=== PATIENT | female | born 1935 | race Caucasian/White ===

== ENCOUNTER 2020-09-15 12:11 | Inpatient (IN) | payer MEDICARE, OTHER ==
[~2020-09-15] VITALS: Ht 167.6 cm; Wt 49.9 kg
--- NOTE | 2020-09-15 12:20 | NUR ---
Patient [id number] [facility]. ASSISTED TO GROUND. HYPOTENSIVE. ox4, no sob noted, no s/o any acute distress. able to to make needs known. denies pain at this time. breathing even and unlabored. Dr Reed at bedside. will continue with plan of care
[2020-09-15] MEDS ORDERED: IV NS 0.9% 1,000 ML BAG IV ONE (12:30)
--- NOTE | 2020-09-15 12:34 | NUR ---
MOVE SHEET SUBMITTED AND CALLED FOR TELE BED.
[2020-09-15] MEDS ORDERED: MEGE40TA5 PO (12:37)
[2020-09-15] MEDS ORDERED: MAGN400O6 PO (12:37)
[2020-09-15] MEDS ORDERED: SENN-18 PO (12:37)
[2020-09-15] MEDS ORDERED: ISOS30TA86 PO (12:37)
[2020-09-15] MEDS ORDERED: VITA1CAP PO (12:37)
[2020-09-15] MEDS ORDERED: OXYB5TAB16 PO (12:37)
[2020-09-15] MEDS ORDERED: NA P133E RC (12:37)
[2020-09-15] MEDS ORDERED: ACET325T53 PO (12:37)
[2020-09-15] MEDS ORDERED: PANT40TA2 PO (12:37)
[2020-09-15] MEDS ORDERED: GABA-532 PO (12:37)
[2020-09-15] MEDS ORDERED: AMIN887L PO (12:37)
[2020-09-15] MEDS ORDERED: MULT-439 PO (12:37)
[2020-09-15] MEDS ORDERED: TRAZ-182 PO (12:37)
[2020-09-15] MEDS ORDERED: BISA10SU11 RC (12:37)
[2020-09-15] MEDS ORDERED: CHOL400T11 PO (12:37)
[2020-09-15] MEDS ORDERED: FURO-145 PO (12:37)
--- NOTE | 2020-09-15 12:45 | NUR ---
SON IS [employer] [phone]
--- NOTE | 2020-09-15 12:48 | NUR ---
blood drawn send to lab
--- NOTE | 2020-09-15 12:48 | NUR ---
blood sugar 96,
[2020-09-15 12:56] LABS: BASOPHILS % (AUTO) 0.7 % (0.0-2.0); EOSINOPHILS % (AUTO) 0.9 % (0.0-6.0); HEMATOCRIT 31 % (33-45); HEMOGLOBIN 10.2 g/dL (11.5-14.8); LYMPHOCYTES # (AUTO) 1.4 K/uL (0.8-4.8); LYMPHOCYTES % (AUTO) 27.5 % (20.0-44.0); MEAN CORPUSCULAR HGB CONC 33 g/dl (31.0-36.0); MEAN CORPUSCULAR VOLUME 90 fL (82-100); MONOCYTES # (AUTO) 0.6 K/uL (0.1-1.30); MONOCYTES % (AUTO) 12.7 % (2.0-12.0); NEUTROPHILS # (AUTO) 2.9 K/uL (1.8-8.9); NEUTROPHILS % (AUTO) 58.2 % (43.0-81.0); PLATELET COUNT (AUTO) 109 K/uL (150-450); RED BLOOD CELL COUNT(AUTO) 3.43 MIL/uL (4.0-5.2); WHITE BLOOD COUNT (AUTO) 4.9 K/uL (4.3-11.0)
--- NOTE | 2020-09-15 13:00 | NUR ---
going to tele 108.
[2020-09-15 13:15] LABS: ALANINE AMINOTRANSFERASE 10 U/L (12-78); ALBUMIN 2.9 g/dL (3.4-5.0); ALKALINE PHOSPHATASE 58 U/L (46-116); ASPARTATE AMINOTRANSFERASE 12 U/L (15-37); BILIRUBIN,DIRECT 0.2 mg/dL (0.0-0.2); BILIRUBIN,TOTAL 0.6 mg/dL (0.2-1.0); CALCIUM, SERUM 7.7 mg/dL (8.5-10.1); CARBON DIOXIDE 25 mmol/L (21-32); CHLORIDE 106 mmol/L (98-107); CREATININE 0.9 mg/dL (0.6-1.3); GLUCOSE 97 mg/dL (74-106); POTASSIUM 3.9 mmol/L (3.5-5.1); SODIUM SERUM 137 mmol/L (136-145); TOTAL PROTEIN, SERUM 5.9 g/dL (6.4-8.2); UREA NITROGEN, BLOOD 14 mg/dL (7-18)
--- NOTE | 2020-09-15 13:15 | NUR ---
patient swab for covid 19 rapid/pcr at this time
--- NOTE | 2020-09-15 14:06 | NUR ---
urine collected and send to lab
--- NOTE | 2020-09-15 14:30 | NUR ---
RN NOTE REPORT RECEIVED FROM RN SHARONDA. PATIENT APPEARS COMFORTABLE AND NOT IN ANY DISTRESS. V PACING ON TELEMETRY. PERIPHERAL LINE LEFT FOREARM. NO COMPLAINS OF PAIN. DESPERATE TO EAT. APPEARS PLEASANT AND CONVERSANT. SAFETY CHECKS IN PLACE. WILL CONTINUE TO MONITOR.
--- NOTE | 2020-09-15 14:31 | NUR ---
patient transported by [facility] from ER to [facility] room [address] report given to kimberly Thomas @ [facility]
[2020-09-15 14:50] LABS: BILIRUBIN,URINE NEGATIVE (NEGATIVE); COLOR,URINE YELLOW (YELLOW); LEUKOCYTE ESTERASE ,URINE TRACE (NEGATIVE); NITRITE, URINE NEGATIVE (NEGATIVE); PH,URINE 6.5 (5.0-8.0); PROTEIN,URINE NEGATIVE (NEGATIVE); UGLUCOSE NEGATIVE (NEGATIVE)
[2020-09-15 15:13] LABS: BACTERIA,URINE 2+ /HPF (None Seen)
[2020-09-15] MEDS ORDERED: Z GUARD REMEDY 2 OZ OINT TP PRN (15:30)
[2020-09-15] MEDS ORDERED: ONDANSETRON HCL/PF 4 MG/2 ML VIAL IVP PRN (15:30)
[2020-09-15] MEDS ORDERED: NA PHOS,M-B/NA PHOS,DI-BA 1 EA ENEMA RC PRN (15:30)
[2020-09-15] MEDS ORDERED: ACETAMINOPHEN 325 MG TABLET PO PRN (15:30)
[2020-09-15] MEDS ORDERED: IV NS 0.9% 1,000 ML IV PRN (15:30)
[2020-09-15] MEDS ORDERED: MAGNESIUM HYDROXIDE 30 ML UDC PO PRN (15:30)
[2020-09-15] MEDS ORDERED: BISACODYL SUPP (10 MG) 10 MG/SUPP.RECT SUPP.RECT RC PRN (15:30)
[2020-09-15 16:00] VITALS: BP 94/53
[2020-09-15] MEDS: SENNOSIDES 8.6 MG TABLET PO SCH (17:10)
--- NOTE | 2020-09-15 18:36 | NUR ---
RN NOTE PATIENT SHOWING EPISODES OF MILD CONFUSION AND SHORT TERM MEMORY IMPAIRMENT. NO CONCERNS RAISED. PATIENT WANTING TO GO HOME BUT RE DIRECTABLE AFTER PROPER EXPLANATION OF PLAN. SAFETY CHECKS IN PLACE. WILL ENDORSE TO NIGHT RN FOR CONTINUITY OF CARE.
--- NOTE | 2020-09-15 19:35 | NUR ---
RN OPENING NOTES PT RECEIVED IN BED. IV LINE WAS PULLED OUT. PT REFUSING TO HAVE ANOTHER IV LINE INSERTED. INSTRUCTIONAL CONSULTANT MADE WELL AWARE. WILL TRY TO INSERT LATER. PT IS A&OX4. CURRENTLY ON ROOM AIR WITH O2 SATURATION OF >98% SHOWING NO S/S OF RESPIRATORY DISTRESS/SOB. PT IS ABLE TO AMBULATE WITH CANE AND SKIN IS INTACT. ALL SAFETY MEASURES IMPLEMENTED. CALL LIGHT WITHIN REACH. BED LOCKED AND IN LOWEST POSITION. BED ALARM ON. WILL CONTINUE TO MONITOR THROUGHOUT THE SHIFT.
[2020-09-15 20:00] VITALS: BP 102/55
[2020-09-15] MEDS: CEPHALEXIN MONOHYDRATE 500 MG CAPSULE PO SCH (21:02)
--- NOTE | 2020-09-15 21:13 | NUR ---
RN NOTE JIA, TRIAL COURT JUDGE ATTEMPTED TO REINSERT IV LINE, BUT PT REFUSED.
[2020-09-15] MEDS ORDERED: TRAZODONE 50 MG TABLET PO SCH (22:00)
[2020-09-16] VITALS: BP 90/53
--- NOTE | 2020-09-16 02:06 | NUR ---
RN NOTE TERRAZZO JOURNEYMAN JIA WAS ABLE TO INSERT IV LINE AT THIS TIME. IV IS ON LEFT WRIST 22 GAUGE. PATENT, FLUSHED, AND INTACT.
[2020-09-16 04:00] VITALS: BP 95/51
--- NOTE | 2020-09-16 06:34 | NUR ---
RN CLOSING NOTES NO CHANGES IN PT CONDITION THROUGHOUT SHIFT. PT IS ON ROOM AIR WITH O2 SAT >98% WITH NO S/S OF RESP DISTRESS/SOB. PT IS ON TELE MONITOR V-PACING. PT HAS IV LINE ON LEFT WRIST, FLUSHED, PATENT AND INTACT WITH NS RUNNING AT 75 MLS/HR. ALL DUE MEDS GIVEN ORDERED. PATIENT KEPT CLEAN AND COMFORTABLE. ALL SAFETY MEASURES IMPLEMENTED. WILL ENDORSE TO MORNING SHIFT RN FOR MELLO.
--- NOTE | 2020-09-16 07:48 | NUR ---
RN OPENING NOTES Patient is alert and oriented x4, no respiratory distress on room air, ambulatory with one person assistance, requesting to have IV line removed because it bothers her currently running hydration. Safety checks done, bed in locked and lowest position, call light within reach.
[2020-09-16 08:00] VITALS: BP 113/76
[2020-09-16] MEDS: SENNOSIDES 8.6 MG TABLET PO SCH (08:15)
[2020-09-16] MEDS: CEPHALEXIN MONOHYDRATE 500 MG CAPSULE PO SCH (08:18)
[2020-09-16] MEDS ORDERED: ISOSORBIDE MONONITRATE (30MG) 30 MG TAB.SR.24H PO SCH (09:00)
[2020-09-16] MEDS ORDERED: MEGESTROL ACETATE 40 MG TABLET PO SCH (09:00)
[2020-09-16] MEDS ORDERED: OXYBUTYNIN CHLORIDE 5 MG TABLET PO SCH (09:00)
[2020-09-16] MEDS ORDERED: PANTOPRAZOLE 40 MG TABLET.DR PO SCH (09:00)
[2020-09-16] MEDS ORDERED: GABAPENTIN 300 MG CAPSULE PO SCH (09:00)
[2020-09-16] MEDS ORDERED: CHOLECALCIFEROL (VITAMIN D 3) 400 UNIT TABLET PO SCH (09:00)
[2020-09-16] MEDS ORDERED: MIDODRINE HCL (5MG) 5 MG TABLET PO PRN (09:30)
--- NOTE | 2020-09-16 10:30 | NUR ---
RN NOTES PT REFUSED TELE MONITOR AND ECHOCARDIOGRAM. RISK AND BENEFITS EXPLAINED, STILL REFUSED. MD AWARE. ORDERS MADE AND CARRIED OUT.
[2020-09-16 12:00] VITALS: BP 110/70
--- NOTE | 2020-09-16 13:08 | NUR ---
[facility], picked up by [facility] with two EMT's. In stable condition, IV line removed prior to D/C, valuables taken with her. Son aware of transfer. Discharge paperwork and med reconciliation given to transportation.
== END 2020-09-16 13:20 | DRG 73 ==
LOC: ER 12:15 → TELE1 13:10
PROVIDERS: ADMIT Hospitalist; ATTEND Internal Medicine
DX: G90.8 Other disorders of autonomic nervous system (principal); E43 Unspecified severe protein-calorie malnutrition; N39.0 Urinary tract infection, site not specified; R64 Cachexia; Z68.1 Body mass index [BMI] 19.9 or less, adult; F03.90 Unspecified dementia, unspecified severity, without behavioral disturbance, psychotic disturbance, mood disturbance, and anxiety; I10 Essential (primary) hypertension; Z95.0 Presence of cardiac pacemaker; I25.10 Atherosclerotic heart disease of native coronary artery without angina pectoris; M19.90 Unspecified osteoarthritis, unspecified site; I25.2 Old myocardial infarction; F32.9 Major depressive disorder, single episode, unspecified; D64.9 Anemia, unspecified; E88.09 Other disorders of plasma-protein metabolism, not elsewhere classified; D69.6 Thrombocytopenia, unspecified; Z20.822 Contact with and (suspected) exposure to COVID-19
CPT/HCPCS: 36415; 71045-TC; 80048-TC; 80076-TC; 81001; 82962-TC; 83605-TC; 84484-TC; 85025-TC; 85730-TC; 86850-TC; 87040-TC; 87081-TC; 87086-TC; G0378; J7030; U0003